=== PATIENT | male | born 1955 | race Caucasian/White ===

== ENCOUNTER 2020-02-15 07:25 | Inpatient (IN) | payer OTHER ==
[~2020-02-15] VITALS: Ht 182.9 cm; Wt 86.2 kg
--- NOTE | 2020-02-15 07:42 | NUR ---
ekg in triage
--- NOTE | 2020-02-15 09:28 | NUR ---
PT RESTING ON GURNEY W/ CALL LIGHT IN REACH AND SIDE RAILS UPX2. RESP EVEN AND UNLABORED, NADN. AWAITING MRI.
[2020-02-15] MEDS ORDERED: GADOTERATE 10 MMOL/20 ML SYR ONE (09:49)
--- NOTE | 2020-02-15 09:50 | NUR ---
Giovani og in EDM - 02/15/20 at 0950 by CBRUCIAGA PT RETURNED FROM MRI. RESP EVEN AND UNLABORED,
--- NOTE | 2020-02-15 10:39 | NUR ---
PT UPDATED ON POC FOR ADMIT. LAB AND RAD IN ROOM.
[2020-02-15] MEDS ORDERED: LISINOPRIL (10:42)
[2020-02-15 11:00] VITALS: BP 125/86
[2020-02-15 11:05] LABS: BASOPHILS % (AUTO) 0 % (0-1); EOSINOPHILS % (AUTO) 1 % (1-7); LYMPHOCYTES % (AUTO) 18 % (22-44); MEAN CORPUSCULAR HEMOGLOBIN 32.1 pg (27.5-34.5); MEAN CORPUSCULAR HGB CONC 33.4 g/dL (33.2-36.2); MEAN PLATELET VOLUME 7.8 fL (7.4-10.4); MONOCYTES % (AUTO) 8 % (2-9); NEUTROPHILS % (AUTO) 73 % (42-75); PLATELET COUNT 212 x10^3/uL (130-400); RED BLOOD COUNT 5.05 x10^6/uL (4.38-5.82)
[2020-02-15 11:08] LABS: MD NO
[2020-02-15 11:09] LABS: INTERNATIONAL NORMALIZED RATIO 1.05 (0.93-1.1); PROTHROMBIN TIME 11.1 Seconds (9.6-11.5)
[2020-02-15 11:10] LABS: ALANINE AMINOTRANSFERASE 29 U/L (12-78); ALBUMIN 3.9 g/dL (3.4-5.0); ANION GAP 9 mmol/L (5-15); CALCIUM 9.7 mg/dL (8.5-10.1); CHLORIDE 108 mmol/L (98-107); CREATININE 1.22 mg/dL (0.7-1.3)
[2020-02-15 11:12] LABS: ALKALINE PHOSPHATASE 36 U/L (45-117); BILIRUBIN,TOTAL 0.8 mg/dL (0.2-1.0); TOTAL PROTEIN 7.4 g/dL (6.4-8.2)
--- NOTE | 2020-02-15 11:34 | NUR ---
REPORT TO GINO MCGHEE. PT IS READY FOR TRANSPORT AT THIS TIME.
[2020-02-15 12:15] VITALS: BP 125/86
[2020-02-15] MEDS ORDERED: DOCUSATE 100 MG CAPSULE PO PRN (14:30)
[2020-02-15] MEDS ORDERED: ACETAMINOPHEN 325 MG TABLET PO PRN (14:30)
[2020-02-15] MEDS ORDERED: SODIUM CHLORIDE 0.9% 1,000 ML IV SCH (14:30)
[2020-02-15] MEDS ORDERED: ONDANSETRON ODT 4 MG PO PRN (14:30)
[2020-02-15] MEDS ORDERED: ONDANSETRON 2MG/ML, 2ML IVPush PRN (14:30)
[2020-02-15] MEDS ORDERED: MELATONIN 5 MG TABLET PO PRN (14:30)
[2020-02-15] MEDS ORDERED: POLYETHYLENE GLYCOL 17 GM PACKET PO PRN (14:30)
[2020-02-15 15:22] LABS: FREE T4 (FREE THYROXINE) 1.1 ng/dL (0.76-1.46)
[2020-02-15] MEDS ORDERED: ENOXAPARIN 40 MG/0.4 ML SQ SCH (15:30)
[2020-02-15] MEDS ORDERED: OMNIPAQUE 350 MG/ML, 100ML BOTTLE ONE (16:45)
[2020-02-15] MEDS: ASPIRIN 81 MG TABLET EC PO SCH (17:08)
[2020-02-15] MEDS ORDERED: ZOLP10TA PO (18:10)
[2020-02-15] MEDS ORDERED: LISI1TAB39 PO (18:10)
[2020-02-15] MEDS: SODIUM CHLORIDE 0.9% 1,000 ML IV SCH (18:33)
[2020-02-15 20:28] VITALS: BP 126/86
[2020-02-15] MEDS ORDERED: ZOLPIDEM 10MG TABLET PO PRN (21:00)
[2020-02-16 00:21] VITALS: BP 101/65
[2020-02-16 05:04] LABS: HCT (SEDRATE) 46.2 % (39.2-51.8)
[2020-02-16 05:15] LABS: ALBUMIN 3.4 g/dL (3.4-5.0); ANION GAP 6 mmol/L (5-15); CHLORIDE 108 mmol/L (98-107)
[2020-02-16 05:21] LABS: ALANINE AMINOTRANSFERASE 24 U/L (12-78); ALKALINE PHOSPHATASE 37 U/L (45-117); C-REACTIVE PROTEIN, QUANT 0.09 mg/dL (0.02-0.49); CHOL/HDL RATIO 3.4; CHOLESTEROL, TOTAL 192 mg/dL (140-239); CREATININE 1.21 mg/dL (0.7-1.3); HDL CHOL % 30 % (26-37); HDL CHOLESTEROL (DIRECT) 57 mg/dL (40-60); LDL CHOLESTEROL,CALCULATED 113 mg/dL (54-169); TOTAL PROTEIN 6.9 g/dL (6.4-8.2); TRIGLYCERIDES 112 mg/dL (50-200); VLDL CHOLESTEROL 22 mg/dL (0-25)
[2020-02-16 05:23] LABS: BASOPHILS % (AUTO) 1 % (0-1); EOSINOPHILS % (AUTO) 1 % (1-7); LYMPHOCYTES % (AUTO) 27 % (22-44); MEAN CORPUSCULAR HEMOGLOBIN 31.8 pg (27.5-34.5); MEAN CORPUSCULAR HGB CONC 33.2 g/dL (33.2-36.2); MEAN PLATELET VOLUME 8.2 fL (7.4-10.4); MONOCYTES % (AUTO) 9 % (2-9); NEUTROPHILS % (AUTO) 62 % (42-75); PLATELET COUNT 202 x10^3/uL (130-400); RED BLOOD COUNT 4.88 x10^6/uL (4.38-5.82); RED CELL DISTRIBUTION WIDTH 14.1 % (9.4-14.8)
[2020-02-16 05:31] LABS: MD NO
[2020-02-16] MEDS: ASPIRIN 81 MG TABLET EC PO SCH (05:52)
[2020-02-16 07:17] VITALS: BP 126/80
[2020-02-16] MEDS ORDERED: PANTOPRAZOLE 40MG TABLET PO SCH (07:30)
[2020-02-16 08:43] LABS: MICROSCOPIC NOT IND
[2020-02-16] MEDS ORDERED: LISINOPRIL 5 MG TABLET PO SCH (09:00)
[2020-02-16] MEDS: SODIUM CHLORIDE 0.9% 1,000 ML IV SCH (09:07)
[2020-02-16] MEDS ORDERED: LISINO (11:52)
[2020-02-16] MEDS ORDERED: ASPI81TA45 PO (11:52)
[2020-02-16] MEDS ORDERED: ATOR20TA37 PO (11:52)
[2020-02-16] MEDS ORDERED: LISI5TAB7 PO (11:52)
[2020-02-16 12:36] VITALS: BP 136/90
[2020-02-16] MEDS ORDERED: ATORVASTATIN 20 MG TABLET PO SCH (21:00)
== END 2020-02-16 17:24 | disposition home or self-care (01) | DRG 65 ==
LOC: ED 08:55 → 4WST 10:37
PROVIDERS: ADMIT Internal Medicine; ATTEND Internal Medicine
DX: I63.9 Cerebral infarction, unspecified (principal); J98.11 Atelectasis; E86.0 Dehydration; G31.84 Mild cognitive impairment of uncertain or unknown etiology; H53.461 Homonymous bilateral field defects, right side; H54.7 Unspecified visual loss; I10 Essential (primary) hypertension; H53.47 Heteronymous bilateral field defects; N28.9 Disorder of kidney and ureter, unspecified; Z79.82 Long term (current) use of aspirin; Z79.899 Other long term (current) drug therapy; Z80.3 Family history of malignant neoplasm of breast; Z82.49 Family history of ischemic heart disease and other diseases of the circulatory system; Z85.46 Personal history of malignant neoplasm of prostate; Z90.79 Acquired absence of other genital organ(s); Z72.89 Other problems related to lifestyle
CPT/HCPCS: 36415; 70496; 70498; 70553; 71045; 80053; 80061; 81003; 82607; 83735; 84100; 84439; 84443; 85025; 85610; 85651; 85730; 86140; 93005; 93306; 99291; G0378; J1650; Q9967; 92523-GN; A9575; J7030

== ENCOUNTER 2020-02-20 10:11 | Day surgery (SDC) | payer OTHER ==
[~2020-02-20] VITALS: Ht 182.9 cm; Wt 81.0 kg
[~2020-02-20 10:11] MED LIST: ASPI81TA45 PO; ATOR20TA37 PO; LISI1TAB39 PO; LISI5TAB7 PO; LISINO; LISINOPRIL; ZOLP10TA PO
[2020-02-20] MEDS ORDERED: LIDOCAINE 1%, 20ML ONE (11:06)
[2020-02-20] MEDS ORDERED: LIDOCAINE 2%, 20ML SQ PRN (11:30)
== END 2020-02-20 12:00 | disposition home or self-care (01) ==
LOC: CACL 10:11
PROVIDERS: ATTEND Internal Medicine Cardiovascular Disease
DX: I63.9 Cerebral infarction, unspecified (principal); I10 Essential (primary) hypertension; Z79.82 Long term (current) use of aspirin; Z79.899 Other long term (current) drug therapy; Z88.0 Allergy status to penicillin; Z82.49 Family history of ischemic heart disease and other diseases of the circulatory system
CPT/HCPCS: 33285; C1764